=== PATIENT | female | born 1950 | race Caucasian/White ===

== ENCOUNTER 2017-10-31 09:45 | Outpatient (CLI) | payer OTHER ==
[~2017-10-31 09:45] MED LIST: METFORMIN HCL500 MG; PROTONIX40 MG PO; SIMVASTATIN20 MG; SYNTHROID75 MCG; SYNTHROID75 MCG PO; ZANTAC300 MG PO; ZOFRAN8 MG PO
== END 2017-10-31 15:00 | disposition home or self-care (01) ==
LOC: RAD 09:45
DX: M12.811 Other specific arthropathies, not elsewhere classified, right shoulder (principal); M19.011 Primary osteoarthritis, right shoulder

== ENCOUNTER 2017-11-06 12:31 | Outpatient (CLI) | payer OTHER | END 2017-11-06 16:49 | disposition home or self-care (01) | LOC: SONOGRAMA 12:31 | DX: M12.811 Other specific arthropathies, not elsewhere classified, right shoulder (principal); M19.011 Primary osteoarthritis, right shoulder ==

== ENCOUNTER 2018-09-10 13:03 | Outpatient (CLI) | payer OTHER | END 2018-09-10 13:05 | disposition home or self-care (01) | LOC: RAD 13:03 | DX: J44.9 Chronic obstructive pulmonary disease, unspecified (principal) ==

== ENCOUNTER 2019-04-06 04:26 | Emergency (ER) | payer OTHER ==
[~2019-04-06] VITALS: Ht 167.6 cm; Wt 66.7 kg
== END 2019-04-06 13:21 | disposition home or self-care (01) ==
LOC: ER 04:26
DX: K29.60 Other gastritis without bleeding (principal)

== ENCOUNTER 2021-01-30 10:39 | Outpatient (CLI) | payer OTHER | END 2021-01-30 10:50 | disposition home or self-care (01) | LOC: RAD 10:39 | PROVIDERS: ATTEND Internal Medicine Cardiovascular Disease | DX: M17.9 Osteoarthritis of knee, unspecified (principal) ==

== ENCOUNTER 2022-05-28 10:46 | Outpatient (CLI) | payer OTHER | END 2022-05-28 10:54 | disposition home or self-care (01) | LOC: RAD 10:46 | PROVIDERS: ATTEND Internal Medicine Cardiovascular Disease | DX: M12.9 Arthropathy, unspecified (principal) ==

== ENCOUNTER 2022-06-04 11:09 | Outpatient (CLI) | payer OTHER | END 2022-06-04 11:10 | disposition home or self-care (01) | LOC: LAB 11:09 | PROVIDERS: ATTEND Radiology Diagnostic Radiology | DX: R10.9 Unspecified abdominal pain (principal) ==

== ENCOUNTER 2023-06-24 12:46 | Outpatient (CLI) | payer OTHER | END 2023-06-24 12:55 | disposition home or self-care (01) | LOC: RAD 12:46 | PROVIDERS: ATTEND Internal Medicine Cardiovascular Disease | DX: M12.9 Arthropathy, unspecified (principal) ==

== ENCOUNTER 2023-10-22 10:42 | Outpatient (CLI) | payer OTHER | END 2023-10-22 10:52 | disposition home or self-care (01) | LOC: MAMO-SONO 10:42 | PROVIDERS: ATTEND Internal Medicine Cardiovascular Disease | DX: N60.11 Diffuse cystic mastopathy of right breast (principal); N60.12 Diffuse cystic mastopathy of left breast; Z12.31 Encounter for screening mammogram for malignant neoplasm of breast ==

== ENCOUNTER 2024-03-13 11:33 | Outpatient (CLI) | payer OTHER | END 2024-03-13 11:40 | disposition home or self-care (01) | LOC: RAD 11:33 | PROVIDERS: ATTEND Internal Medicine Cardiovascular Disease | DX: M12.9 Arthropathy, unspecified (principal); M10.9 Gout, unspecified ==

== ENCOUNTER 2024-06-02 06:33 | Inpatient (IN) | payer OTHER ==
[2024-05-28 09:21] VITALS: BP 118/67
[2024-05-28 09:31] LABS: HEMOGLOBIN 13.2 g/dL (12.0-15.00); MEAN CELL VOLUME 92.6 fL (80.00-100.00); MEAN CORPUSCULAR HEMOGLOBIN 30.5 pg (27.00-32.0); MEAN CORPUSCULAR HGB CONC 32.9 g/dl (32.0-36.0); PLATELET COUNT 279 K/uL (150-450); RED BLOOD COUNT 4.33 M/uL (4.00-6.00); RED CELL DISTRIBUTION WIDTH 14.1 % (11.5-14.5)
[2024-05-28 09:38] LABS: PH,URINE 5.5 (5.0-8.0); URINE APPEARANCE Clear; URINE BILIRRUBIN Negative (NEGATIVE); URINE BLOOD Trace; URINE COLOR Yellow; URINE GLUCOSE Negative (NEGATIVE); URINE KETONE Negative (NEGATIVE); URINE LEUKOCYTE Negative; URINE NITRATE Negative; URINE PROTEIN Negative (NEGATIVE); URINE UROBILINOGEN 0.2 E.U./dl
[2024-05-28 09:43] LABS: URINE BACTERIA 367.9 uL (0.0-1933); URINE EPITHELIAL CELLS 9.7 uL (0.0-38.8); URINE RBC 31.4 uL (0.0-20.8); URINE WBC 9.5 uL (0.0-23.2)
[2024-05-28 09:57] LABS: URINE CAST 0.45 uL (0.0-1.40)
[2024-05-28 10:21] LABS: INR 0.94; PARTIAL THROMBOPLASTIN TIME 27.2 SECONDS (22.0-34.0); PROTHROMBIN TIME 10.3 SECONDS (9.0-11.5)
[2024-05-28 10:45] LABS: ALBUMIN 3.7 gm/dL (3.4-5.0); BILIRUBIN TOTAL 0.41 mg/dL (0.3-1.2); CALCIUM 9.2 mg/dL (8.5-10.1); CREATININE SERUM 0.62 mg/dL (0.55-1.02); GFR 94.89; GLOBULINA 3.2 G/DL (2.4-3.5); POTASSIUM 4.84 mEq/L (3.5-5.1); T4 FREE 1.14 NG/ML (0.76-1.46); TOTAL PROTEIN 6.9 gm/dL (6.4-8.2); TSH 0.406 uIU/mL (0.358-3.74)
[~2024-06-02] VITALS: Ht 152.4 cm; Wt 59.0 kg
[2024-06-02] MEDS ORDERED: CEFAZOLIN SODIUM 1,000 MG VIAL IV SCH ×2 (12:30→17:00)
[2024-06-02] MEDS ORDERED: SUGAMMADEX SODIUM 200 MG/2 ML VIAL IV ONE (14:00)
[2024-06-02] MEDS ORDERED: MEPERIDINE HCL/PF 50 MG/ML VIAL IM PRN (14:15)
[2024-06-02] MEDS ORDERED: OxyCODONE HCL/APAP UD (PERCOCET) PO PRN (14:15)
[2024-06-02] MEDS ORDERED: POTASSIUM CHLORIDE-0.45% NACL 20 MEQ/1,000 ML PIGGYBAG IV NR (14:15)
[2024-06-02] MEDS ORDERED: MORPHINE SULFATE 2 MG/ML CARTRIDGE IV ONE (15:00)
[2024-06-02 21:00] VITALS: BP 115/70; O2SAT 98
[2024-06-02] MEDS ORDERED: FAMOTIDINE/PF 20 MG/10 ML SYRINGE IV SCH (21:00)
[2024-06-02 21:22] LABS: HEMATOCRIT 34.7 % (36.0-45.00); HEMOGLOBIN 11.5 g/dL (12.0-15.00); MEAN CELL VOLUME 92.1 fL (80.00-100.00); MEAN CORPUSCULAR HEMOGLOBIN 30.6 pg (27.00-32.0); MEAN CORPUSCULAR HGB CONC 33.3 g/dl (32.0-36.0); PLATELET COUNT 257 K/uL (150-450); RED BLOOD COUNT 3.77 M/uL (4.00-6.00); RED CELL DISTRIBUTION WIDTH 13.8 % (11.5-14.5)
[2024-06-02 21:43] LABS: ABG PH 7.374 (7.35-7.45); ABG PO2 91.2 mmHg (80-100); BASE EXCESS -2.6 mmol/l; BICARBONATE 22.2 mmol/l (23-25); SaO2 96.7 %; Tco2 23.4 mmol/l
[2024-06-02 22:02] LABS: CALCIUM 8.8 mg/dL (8.5-10.1); CREATININE SERUM 0.77 mg/dL (0.55-1.02); GFR 73.9; POTASSIUM 4.13 mEq/L (3.5-5.1)
[2024-06-02 22:09] LABS: allen test SATISFACTORY; o2 21 %; puncture site RADIAL LEFT
[2024-06-02] MEDS ORDERED: LORazepam 2 MG/ML VIAL IV PUSH ONE (23:00)
[2024-06-03 04:00] VITALS: BP 119/69; O2SAT 98
[2024-06-03 08:55] VITALS: BP 109/54; O2SAT 97
[2024-06-03 11:58] LABS: HEMATOCRIT 32.2 % (36.0-45.00); HEMOGLOBIN 10.8 g/dL (12.0-15.00); MEAN CELL VOLUME 90.9 fL (80.00-100.00); MEAN CORPUSCULAR HEMOGLOBIN 30.5 pg (27.00-32.0); MEAN CORPUSCULAR HGB CONC 33.5 g/dl (32.0-36.0); PLATELET COUNT 229 K/uL (150-450); RED BLOOD COUNT 3.54 M/uL (4.00-6.00); RED CELL DISTRIBUTION WIDTH 14.1 % (11.5-14.5)
[2024-06-03 12:28] LABS: INR 1.02; PARTIAL THROMBOPLASTIN TIME 25.3 SECONDS (22.0-34.0); PROTHROMBIN TIME 11.1 SECONDS (9.0-11.5)
[2024-06-03 13:11] LABS: CALCIUM 8.6 mg/dL (8.5-10.1); CREATININE SERUM 0.66 mg/dL (0.55-1.02); GFR 88.28; POTASSIUM 4.08 mEq/L (3.5-5.1)
[2024-06-03] MEDS ORDERED: LORazepam 2 MG/ML VIAL IV PRN (15:00)
[2024-06-03] MEDS ORDERED: ACETAMINOPHEN 500 MG GEL..CAP PO PRN (15:15)
[2024-06-03 17:44] VITALS: BP 130/67; O2SAT 97
[2024-06-03] MEDS ORDERED: FAMOTIDINE/PF 20 MG/2 ML VIAL IV PUSH SCH (21:00)
[2024-06-04 01:02] VITALS: BP 138/66; O2SAT 95
[2024-06-04] MEDS ORDERED: LEVOTHYROXINE SODIUM 75 MCG TABLET PO SCH (06:00)
[2024-06-04 06:14] LABS: HEMATOCRIT 30.2 % (36.0-45.00); HEMOGLOBIN 10.1 g/dL (12.0-15.00); MEAN CELL VOLUME 91.3 fL (80.00-100.00); MEAN CORPUSCULAR HEMOGLOBIN 30.5 pg (27.00-32.0); MEAN CORPUSCULAR HGB CONC 33.4 g/dl (32.0-36.0); PLATELET COUNT 212 K/uL (150-450); RED BLOOD COUNT 3.31 M/uL (4.00-6.00); RED CELL DISTRIBUTION WIDTH 13.6 % (11.5-14.5)
[2024-06-04 07:01] LABS: ALBUMIN 3.2 gm/dL (3.4-5.0); BILIRUBIN TOTAL 0.69 mg/dL (0.3-1.2); CALCIUM 8.9 mg/dL (8.5-10.1); CREATININE SERUM 0.61 mg/dL (0.55-1.02); GFR 96.68; GLOBULINA 2.7 G/DL (2.4-3.5); POTASSIUM 3.89 mEq/L (3.5-5.1); TOTAL PROTEIN 5.9 gm/dL (6.4-8.2)
[2024-06-04 08:59] VITALS: BP 133/67; BP 93/54; O2SAT 100; O2SAT 96
[2024-06-04] MEDS ORDERED: QUETIAPINE FUMARATE 25 MG TABLET PO SCH (09:00)
[2024-06-04 16:00] VITALS: BP 146/66; O2SAT 99
[2024-06-04] MEDS ORDERED: DONEPEZIL HCL 10 MG TABLET PO SCH (17:00)
[2024-06-04 17:43] VITALS: BP 146/66; O2SAT 99
[2024-06-04] MEDS ORDERED: LORazepam 1 MG TABLET PO SCH (21:00)
[2024-06-05 00:38] VITALS: BP 122/69; O2SAT 94
[2024-06-05 09:34] VITALS: BP 150/69; O2SAT 99
== END 2024-06-05 11:55 | disposition home or self-care (01) | DRG 582 ==
LOC: CIR.AMB 06:33 → MEDI 14:33 → O/R 14:33 → OB/GYN 17:30 → MEDI 20:06
PROVIDERS: ADMIT Specialist; ATTEND Specialist
PROC: 0HTU0ZZ Resection of Left Breast, Open Approach (ICD-10-PCS; principal; 2024-06-02 13:30)
PROC: B020ZZZ Computerized Tomography (CT Scan) of Brain (ICD-10-PCS; 2024-06-04)
DX: C50.412 Malignant neoplasm of upper-outer quadrant of left female breast (principal); F03.911 Unspecified dementia, unspecified severity, with agitation; F05 Delirium due to known physiological condition; L76.22 Postprocedural hemorrhage of skin and subcutaneous tissue following other procedure; R59.0 Localized enlarged lymph nodes; S09.90XA Unspecified injury of head, initial encounter; W06.XXXA Fall from bed, initial encounter; Y93.9 Activity, unspecified; Y92.230 Patient room in hospital as the place of occurrence of the external cause; Y99.9 Unspecified external cause status; D64.89 Other specified anemias; E03.9 Hypothyroidism, unspecified